=== PATIENT | male | born 1990 | race Native Hawaiian/Other Pacific Islander ===

== ENCOUNTER 2016-07-23 08:13 | Outpatient (CLI) | payer OTHER ==
[~2016-07-23 08:13] MED LIST: ATEN50TA36 PO; CITALOPRAM40 MG PO; OMEPRAZOLE40 MG OR; RISPERDAL M PO; ZANTAC300 MG PO
[2016-07-23 08:50] LABS: PLATELET COUNT 272 K/uL (142-355)
[2016-07-23 09:10] LABS: POTASSIUM 4.3 mmol/L (3.6-5.2); SODIUM 138 mmol/L (136-145)
== END 2016-07-23 19:24 | disposition home or self-care (01) ==
LOC: LABW 08:13
PROVIDERS: Psychiatry & Neurology Psychiatry
DX: F33.1 Major depressive disorder, recurrent, moderate (principal); F70 Mild intellectual disabilities; Z79.899 Other long term (current) drug therapy; Z51.81 Encounter for therapeutic drug level monitoring
CPT/HCPCS: 36415; 80053; 80061; 84443; 85027

== ENCOUNTER 2018-02-15 15:35 | Emergency (ER) | payer OTHER ==
[~2018-02-15] VITALS: Ht 180.3 cm; Wt 96.2 kg
[2018-02-15 15:45] VITALS: TEMP 98.3
[2018-02-15 16:29] VITALS: BP 142/89
== END 2018-02-15 16:34 | disposition home or self-care (01) ==
LOC: ED 15:35
DX: S63.592A Other specified sprain of left wrist, initial encounter (principal); W01.0XXA Fall on same level from slipping, tripping and stumbling without subsequent striking against object, initial encounter; Y92.89 Other specified places as the place of occurrence of the external cause
CPT/HCPCS: 99282